=== PATIENT | male | born 1980 | race Caucasian/White ===

== ENCOUNTER 2018-05-09 12:31 | Inpatient (IN) | payer OTHER ==
[~2018-05-09] VITALS: Ht 162.6 cm; Wt 63.3 kg
[~2018-05-09 12:31] MED LIST: ATIVAN1 MG PO; IBU-8800 MG PO; KEFLEX500 MG PO; VICODIN 500 MG-1 TAB PO; ZOFRAN4 MG PO
[2018-05-09 12:33] VITALS: BP 117/80
[2018-05-09 13:19] LABS: BILIRUBIN 1+ (NEGATIVE); BLOOD NEGATIVE (NEGATIVE); CLARITY CLEAR (CLEAR); COLOR YELLOW (YELLOW); GLUCOSE NEGATIVE (NEGATIVE); KETONE 3+ (NEGATIVE); LEUKO ESTERASE NEGATIVE (NEGATIVE); NITRITE NEGATIVE (NEGATIVE); PH 6.5 (5.0-9.0); SPECIFIC GRAVITY >= 1.030 (1.005-1.030); UROBILINOGEN 0.2 E.U./dl (0.2-1.0)
[2018-05-09 13:31] LABS: MUCOUS 1+; RBC 0-2 rbc/hpf (0-2); WBC 0-2 wbc/hpf (0-5)
[2018-05-09 13:32] LABS: URINE AMPHETAMINES < 1000 (1000ng/ml); URINE BARBITURATES > 200 (200ng/ml); URINE BENZODIAZEPINES < 200 (200ng/ml); URINE METHADONE < 300 (300ng/ml); URINE OPIATES < 300 (300ng/ml)
[2018-05-09 13:36] LABS: URINE CANNABINOIDS (THC) > 50 (50ng/ml); URINE COCAINE < 300 (300ng/ml)
[2018-05-09 13:37] LABS: URINE PHENCYCLIDINE < 25 (25ng/ml)
[2018-05-09 13:47] LABS: BASO % 0.2 % (0.0-1.0); HEMATOCRIT 42.9 % (42.0-52.0); LYMPH # 1.7 10*3/uL (1.3-4.4); LYMPH % 20.7 % (27.0-41.0); MEAN CELL VOLUME 87.7 fl (80.0-94.0); MEAN CORPUSCULAR HGB 28.6 pg (27.0-31.0); MEAN CORPUSCULAR HGB CONC 32.6 g/dl (33.0-37.0); MEAN PLATELET VOLUME 9.6 fl (9.6-12.3); MONO # 0.9 10*3/uL (0.1-1.0); MONO % 11.2 % (3.0-9.0); NEUT # 5.5 10*3/uL (2.3-7.9); NEUT % 67.3 % (47.0-73.0); PLATELET COUNT AUTOMATED 310 10*3/uL (130-400); RED BLOOD COUNT 4.89 10*6/uL (4.50-5.90); RED CELL DISTRI WIDTH 14.4 % (0-14.5); WHITE BLOOD COUNT 8.2 10*3/uL (4.8-10.8)
[2018-05-09 14:04] LABS: ALBUMIN 4.1 gm/dl (3.1-4.5); ALKALINE PHOSPHATASE 59 U/L (45-117); BUN 8 mg/dl (7-24); CHLORIDE 107 mmol/L (98-107); CREATININE 0.95 mg/dL (0.70-1.30); SGOT/AST 19 IU/L (3-35); SGPT/ALT 28 U/L (12-78); SODIUM 144 mmol/L (136-145)
[2018-05-09 14:11] LABS: ACETAMINOPHEN (TYLENOL) < 2.0 ug/ml (10-30); ETHYL ALCOHOL < 3.0 mg/dl (<3); TROPONIN I < 0.015 ng/ml (<0.045)
[2018-05-09 14:12] LABS: THYROID STIM HORMONE (HS) 0.613 uIU/ml (0.358-4.75)
[2018-05-09 14:15] VITALS: BP 126/76
[2018-05-09 16:00] VITALS: BP 126/76; BP 126/81
[2018-05-09 20:00] VITALS: BP 106/58
[2018-05-10] VITALS: BP 110/68
[2018-05-10 04:00] VITALS: BP 98/69
[2018-05-10 08:00] VITALS: BP 110/71
[2018-05-10 12:00] VITALS: BP 115/71
[2018-05-10 16:00] VITALS: BP 99/62
[2018-05-10 20:00] VITALS: BP 92/58
[2018-05-11] VITALS: BP 97/72
[2018-05-11 08:00] VITALS: BP 102/73
[2018-05-11 12:00] VITALS: BP 115/67
[2018-05-11 16:00] VITALS: BP 113/72
[2018-05-11 20:00] VITALS: BP 124/70
[2018-05-12] VITALS: BP 117/70
[2018-05-12 06:56] LABS: BASO # 0.1 10*3/uL (0.0-0.1); BASO % 0.9 % (0.0-1.0); EOS # 0.4 10*3/uL (0.0-0.4); EOS % 5.2 % (1.0-4.0); HEMATOCRIT 42.4 % (42.0-52.0); HEMOGLOBIN 13.4 g/dl (14.0-18.0); LYMPH # 2.8 10*3/uL (1.3-4.4); LYMPH % 32.7 % (27.0-41.0); MEAN CELL VOLUME 89.6 fl (80.0-94.0); MEAN CORPUSCULAR HGB 28.3 pg (27.0-31.0); MEAN CORPUSCULAR HGB CONC 31.6 g/dl (33.0-37.0); MEAN PLATELET VOLUME 9.9 fl (9.6-12.3); MONO # 0.8 10*3/uL (0.1-1.0); MONO % 9.4 % (3.0-9.0); NEUT # 4.3 10*3/uL (2.3-7.9); NEUT % 51.1 % (47.0-73.0); PLATELET COUNT AUTOMATED 303 10*3/uL (130-400); RED BLOOD COUNT 4.73 10*6/uL (4.50-5.90); RED CELL DISTRI WIDTH 14.5 % (0-14.5); WHITE BLOOD COUNT 8.4 10*3/uL (4.8-10.8)
[2018-05-12 07:10] LABS: CREATININE 0.92 mg/dL (0.70-1.30)
[2018-05-12 08:00] VITALS: BP 120/70
[2018-05-12] MEDS ORDERED: ZOFRAN 4 MG ED2 TAB PO (08:20)
== END 2018-05-12 11:00 | disposition home or self-care (01) | DRG 897 ==
LOC: ED 12:31 → 4E 13:52 → EDHOLD 13:52 → 4E 14:56
PROVIDERS: Internal Medicine; Nurse Practitioner Family
DX: F11.23 Opioid dependence with withdrawal (principal); F12.10 Cannabis abuse, uncomplicated; F19.10 Other psychoactive substance abuse, uncomplicated; F14.10 Cocaine abuse, uncomplicated; F13.10 Sedative, hypnotic or anxiolytic abuse, uncomplicated; Z79.899 Other long term (current) drug therapy; Z72.89 Other problems related to lifestyle; Z82.49 Family history of ischemic heart disease and other diseases of the circulatory system; Z72.0 Tobacco use; Z71.6 Tobacco abuse counseling

== ENCOUNTER 2020-06-24 10:31 | Inpatient (IN) | payer OTHER ==
[~2020-06-24] VITALS: Ht 165.1 cm; Wt 61.0 kg
[~2020-06-24 10:31] MED LIST changes: +ROPINIROLE HYD0.5 MG PO; +ZOFRAN 4 MG ED2 TAB PO
[2020-06-24 10:37] VITALS: BP 123/70
[2020-06-24 11:05] LABS: BASO % 0.7 % (0.0-1.0); EOS # 0.1 10*3/uL (0.0-0.4); EOS % 1.6 % (1.0-4.0); HEMATOCRIT 42.4 % (42.0-52.0); LYMPH % 18.1 % (27.0-41.0); MEAN CELL VOLUME 87.4 fl (80.0-94.0); MEAN CORPUSCULAR HGB 28.2 pg (27.0-31.0); MEAN CORPUSCULAR HGB CONC 32.3 g/dl (33.0-37.0); MONO # 0.4 10*3/uL (0.1-1.0); MONO % 7.4 % (3.0-9.0); NEUT # 4.1 10*3/uL (2.3-7.9); NEUT % 71.8 % (47.0-73.0); PLATELET COUNT AUTOMATED 336 10*3/uL (130-400); RED BLOOD COUNT 4.85 10*6/uL (4.50-5.90); RED CELL DISTRI WIDTH 13.4 % (0-14.5); WHITE BLOOD COUNT 5.7 10*3/uL (4.8-10.8)
[2020-06-24 11:20] LABS: ALBUMIN 4.1 gm/dl (3.1-4.5); ALKALINE PHOSPHATASE 68 U/L (45-117); BUN 10 mg/dl (7-24); CHLORIDE 105 mmol/L (98-107); CREATININE 0.91 mg/dL (0.70-1.30); POTASSIUM 4.4 mmol/L (3.5-5.1); SGOT/AST 15 IU/L (3-35); SGPT/ALT 22 U/L (12-78); SODIUM 136 mmol/L (136-145); TOTAL PROTEIN 8.2 gm/dL (6.4-8.2)
[2020-06-24 11:22] LABS: ETHYL ALCOHOL < 3.0 mg/dl (<3)
[2020-06-24 11:31] LABS: URINE AMPHETAMINES < 1000 (1000ng/ml); URINE BARBITURATES < 200 (200ng/ml); URINE BENZODIAZEPINES < 200 (200ng/ml); URINE CANNABINOIDS (THC) < 50 (50ng/ml); URINE COCAINE > 300 (300ng/ml); URINE METHADONE < 300 (300ng/ml); URINE OPIATES < 300 (300ng/ml)
[2020-06-24 11:32] LABS: URINE PHENCYCLIDINE < 25 (25ng/ml)
--- NOTE | 2020-06-24 11:45 | NUR ---
39 year old MALE admitted to room # 531 for stabilization. 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 Compliant with admission procedure. See assessment forms for additional information about patient status.
[2020-06-24 12:00] VITALS: BP 136/89
--- NOTE | 2020-06-24 13:06 | NUR ---
PATIENT MEETS [facility]. PATIENT IS WANTING RESIDENIAL TREATMENT FOR HIS AFTERCARE PLAN. [place] STAFF WILL PROVIDE PATIENT WITH REFERRALS. CAROLINA PLUMMER B.A. INTERPRETIVE PROGRAM COORDINATOR
--- NOTE | 2020-06-24 14:39 | NUR ---
[place] STAFF IN TO SEE PATIENT. PATIENT IS WANTING TO FOLLOW UP WITH [facility] FOR MEDICATION-ASSISTED TREATMENT FOR HIS AFTERCARE PLAN. CAROLINA PLUMMER B.A. STRIPPER BLACK AND WHITE
--- NOTE | 2020-06-24 15:46 | NUR ---
PT REQUESTED AND WAS MEDICATED WITH ROBAXIN AND VISTIRIL FOR C/O MUSCLE ACHES AND ANXIETY. CALL LIGHT IN REACH. WILL MONITOR.
--- NOTE | 2020-06-24 15:49 | NUR ---
PT REQUESTED AND WAS MEDICATED WITH ZOFRAN AND BENTYL FOR C/O NAUSEA AND CRAMPING. CALL LIGHT IN REACH. WILL MONITOR
[2020-06-24 16:00] VITALS: BP 118/71
--- NOTE | 2020-06-24 16:30 | NUR ---
MEDICATIONS EFFECTIVE PER PT. CALL LIGHT IN REACH. WILL MONITOR
[2020-06-24 20:00] VITALS: BP 110/65
--- NOTE | 2020-06-24 20:14 | NUR ---
SCHEDULED LIBRIUM GIVEN PER ORDER. PO TYLENOL & MOTRIN ALSO GIVEN FOR GENERALIZED BODY ACHES/MUSCLE PAIN. PO REQUIP ALSO GIVEN FOR RESTLESS LEGS. DISCUSSED MEDICATION SCHEDULE. PT VERBALIZES UNDERSTANDING. WILL MONITOR. CALL LIGHT IN REACH.
--- NOTE | 2020-06-24 21:10 | NUR ---
NO FURTHER COMPLAINTS FROM PATIENT. EARLIER MEDICATIONS APPEAR EFFECTIVE. PT RESTING IN BED. WILL MONITOR.
--- NOTE | 2020-06-24 22:55 | NUR ---
SCHEDULED LIBRIUM GIVEN PER ORDER. PO TRAZODONE GIVEN FOR C/O INSOMNIA. VISTARIL GIVEN FOR C/O ANXIETY. ROBAXIN GIVEN FOR MUSCLE ACHES/RESTLESS LEGS. ZOFRAN GIVEN FOR C/O NAUSEA.
--- NOTE | 2020-06-24 23:45 | NUR ---
EARLIER MEDICATIONS HELPED SOME, BUT PT STILL C/O ANXIETY & RESTLESSNESS. DISCUSSED MEDICATION SCHEDULE. VERBALIZES UNDERSTANDING. WILL MONITOR. CALL LIGHT IN REACH.
[2020-06-25] VITALS: BP 100/82
--- NOTE | 2020-06-25 00:40 | NUR ---
PT REQUESTING BENADRYL. BENADRYL CURRENTLY ORDERED IV. PT DOES NOT HAVE IV. NOTIFIED. NEW ORDER RECEIVED.
--- NOTE | 2020-06-25 01:06 | NUR ---
SCHEDULED SUBUTEX GIVEN PER ORDER. PO BENADRYL ALSO GIVEN PER ONE TIME DOSE FOR C/O ANXIETY/INSOMNIA. SECOND DOSE OF TRAZODONE ALSO GIVEN PER PRN ORDER FOR INSOMNIA. TYLENOL ADMINISTERED FOR GENERALIZED BODY ACHES. WILL MONITOR EFFECTIVENESS. DISCUSSED MEDICATION SCHEDULE. PT VERBALIZES UNDERSTANDING.
--- NOTE | 2020-06-25 03:28 | NUR ---
SCHEDULED LIBRIUM GIVEN PER ORDER. PT DENIES ANY NEEDS. WILL MONITOR. CALL LIGHT IN REACH.
[2020-06-25 08:00] VITALS: BP 122/86
--- NOTE | 2020-06-25 09:00 | NUR ---
Patient resting quietly. Respirations easy and regular. Vital signs stable. No overt distress. HANSA SALAZAR R
[2020-06-25 12:00] VITALS: BP 111/53
--- NOTE | 2020-06-25 12:02 | NUR ---
[place] STAFF IN TO SEE PATIENT. PATIENT'S AFTERCARE PLAN REMAINS THE SAME. PATIENT WILL BE FOLLOW UP WITH [facility] IN [place] FOR HIS AFTERCARE PLAN. CAR[place]INA PLUMMER B.A. CRIBBER
[2020-06-25 16:00] VITALS: BP 108/69
--- NOTE | 2020-06-25 16:54 | NUR ---
PT REQUESTED AND WAS MEDICATWED WITH VISTIRIL FOR C/O ANXIETY AND ROBAXIN FOR C/O MUSCLE ACHES. CALL LIGHT IN REACH. WILL MONITOR
[2020-06-25 20:00] VITALS: BP 111/71
--- NOTE | 2020-06-25 21:00 | NUR ---
BOXED LUNCH PROVIDED PER REQUEST.
--- NOTE | 2020-06-25 21:30 | NUR ---
PT MEDICATED WITH PO TYLENOL & PO MOTRIN FOR C/O GENERALIZED BODY/MUSCLE ACHES. PO REQUIP GIVEN FOR RESTLESS LEGS. PO TRAZODONE GIVEN FOR INSOMNIA, ALTHOUGH PT REPORTS HE SLEPT ALL DAY. PO LIBRIUM GIVEN FOR ANXIETY. WILL MONITOR EFFECTIVENESS. CALL LIGHT IN REACH.
--- NOTE | 2020-06-25 22:15 | NUR ---
EARLIER MEDICATIONS EFFECTIVE PER PT. WILL MONITOR. CALL LIGHT IN REACH.
[2020-06-26] VITALS: BP 116/75
--- NOTE | 2020-06-26 01:28 | NUR ---
SCHEDULED SL SUBUTEX ADMINISTERED AT THIS TIME. SL ZOFRAN ALSO GIVEN FOR C/O NAUSEA. PO ROBAXIN GIVEN FOR C/O MUSCLE ACHE. PO VISTARIL GIVEN FOR C/O ANXIETY. WILL MONITOR EFFECTIVENESS. PT DENIES ANY OTHER NEEDS AT PRESENT TIME. CALL LIGHT LEFT IN REACH.
[2020-06-26 08:00] VITALS: BP 111/67
--- NOTE | 2020-06-26 08:41 | NUR ---
ASSESSMENT COMPLETE WITHOUT INCIDENCE. PT STATES THAT HE IS FEELING ANXIOUS AND HAS MUSCLE CRAMPS IN HIS LEGS, WILL SEE IF HE CAN HAVE ANYTHING FOR THESE SIDE EFFECTS. CALL LIGHT WITHIN REACH, WILL CONTINUE TO MONITOR.
--- NOTE | 2020-06-26 09:23 | NUR ---
PRN ROBAXIN PO GIVEN FOR COMPLAINTS OF ACHES IN LEGS. PRN VISTARIL PO GIVENF OR ANXIETY. WILL MONITOR FOR EFFECTIVENESS
--- NOTE | 2020-06-26 10:00 | NUR ---
PT STATES HE STILL FEELS ANXIOUS, AND THAT HIS LEGS ARE NOT BAD. WILL CONTINUE TO MONITOR
[2020-06-26 12:00] VITALS: BP 121/62
--- NOTE | 2020-06-26 13:15 | NUR ---
[place] STAFF SPOKE TO PATIENT. PATIENT CHANGED HIS AFTERCARE PLAN. PATIENT IS WANTING TO GO TO [facility] FOR HIS AFTERCARE PLAN. PATIENT IS SCHEDULED TO BE THERE TOMORROW AT 10;45AM. CAR[place]INA PLUMMER B.A. EDUCATION PARAPROFESSIONAL
[2020-06-26] MEDS ORDERED: ATARAX,VISTARIL50 MG PO (15:07)
[2020-06-26 16:00] VITALS: BP 113/77
--- NOTE | 2020-06-26 16:34 | NUR ---
PRN ROBAXIN GIVEN FOR COMPLAINTS OF MUSCLE ACHES IN HIS LEGS. PRN VISTARIL PO GIVEN FOR ANXIETY. WILL MONITOR FOR EFFECTIVENESS
[2020-06-26 20:00] VITALS: BP 122/79
--- NOTE | 2020-06-26 22:47 | NUR ---
PATIENT MEDICATED WITH BENTYL, TRAZODONE, LIBRIUM, MOTRIN, REQUIP, ROBAXIN AND VISTARIL FOR COMPLAINTS OF RESTLESS, ACHING, GENERALIZED DISCOMFORT, INSOMNIA AND ANXIETY. WILL CONTINUE TO MONITOR. PATIENT ALSO GIVEN EVIE GILBERT AND HARINDER. CALL LIGHT IN REACH.
[2020-06-27] VITALS: BP 118/85
--- NOTE | 2020-06-27 00:30 | NUR ---
PRN MEDICATIONS EFFECTIVE. PATIENT IN BED SLEEPING AT THIS TIME. NO SIGNS OR SYMPTOMS OF DISTRESS NOTED. WILL CONTINUE TO MONITOR. CALL LIGHT IN REACH.
--- NOTE | 2020-06-27 07:30 | NUR ---
ASSUMED CARE FOR PT AT THIS TIME, SITTING UP IN BED. DENIES CP OR ANY DISCOMFORT, CALL LIGHT WITHIN REACH.
[2020-06-27 08:00] VITALS: BP 134/74
--- NOTE | 2020-06-27 11:00 | NUR ---
Patient discharged in stable condition, referral letter provided to patient with specific instructions and appointment for ongoing treatment. Patient verbalizes understanding of discharge plan.
== END 2020-06-27 11:00 | disposition home or self-care (01) | DRG 773 ==
LOC: ED 10:31 → EDHOLD 10:55 → 5E 10:55
PROVIDERS: Emergency Medicine; ADMIT Internal Medicine; ATTEND Internal Medicine
DX: F11.23 Opioid dependence with withdrawal (principal); F14.10 Cocaine abuse, uncomplicated; D64.9 Anemia, unspecified; G25.81 Restless legs syndrome; F41.9 Anxiety disorder, unspecified; F19.10 Other psychoactive substance abuse, uncomplicated; F17.210 Nicotine dependence, cigarettes, uncomplicated; R00.0 Tachycardia, unspecified; Z82.49 Family history of ischemic heart disease and other diseases of the circulatory system; Z79.899 Other long term (current) drug therapy

== ENCOUNTER 2021-06-10 20:46 | Emergency (ER) | payer OTHER ==
[~2021-06-10] VITALS: Ht 167.6 cm; Wt 77.1 kg
[~2021-06-10 20:46] MED LIST changes: +ATARAX,VISTARIL50 MG PO
[2021-06-10] MEDS ORDERED: SEPTDS PO (22:33)
== END 2021-06-10 22:50 | disposition home or self-care (01) ==
LOC: ED 20:46
DX: K13.0 Diseases of lips (principal)